=== PATIENT | female | born 1935 | race Caucasian/White ===

== ENCOUNTER 2016-07-30 13:36 | Emergency (ER) | payer MEDICARE ==
[2016-07-30 15:02] VITALS: BP 184/84
--- NOTE | 2016-07-30 15:20 | PHYS DOC ---
Past Medical History Past Medical History: High Cholesterol, Hypothyroid Past Surgical History: Other Additional Past Surgical Histo: D\C Alcohol Use: None Drug Use: None Adult General Chief Complaint Chief Complaint: LOWEREXTREMITY INJURY HPI HPI Patient is a 80 year old female with end high cholesterol who presents today with left lower extremity pain mild in nature that began today after the grandson weighing approximately 40 pounds fell with the chair on her leg. Review of Systems Review of Systems Constitutional: Denies fever or chills [] Eyes: Denies change in visual acuity, redness, or eye pain [] Musculoskeletal: Left lower extremity pain Integument: Denies rash or skin lesions [] Neurologic: Denies headache, focal weakness or sensory changes [] Endocrine: Denies polyuria or polydipsia [] Physical Exam Physical Exam Constitutional: Well developed, well nourished, no acute distress, non-toxic appearance. [] HENT: Normocephalic, atraumatic, bilateral external ears normal, oropharynx moist, no oral exudates, nose normal. [] Skin: Warm, dry, no erythema, no rash. [] Back: No tenderness, no CVA tenderness. [] Extremities: Left lower extremity with no obvious deformity, small contusion noted on the left anterior ankle. Tenderness on palpation of the distal gauthier. Full range of motion to the left lower extremity including the ankle and toes. + 2 left pedal pulse. Cap refill less than 2 seconds and left lower extremity. Sensation intact to the left lower extremity. Neurologic: Alert and oriented X 3, normal motor function, normal sensory function, no focal deficits noted. [] Psychologic: Affect normal, judgement normal, mood normal. [] Current Patient Data Vital Signs Vital Signs Date Time Temp Pulse Resp B/P Pulse Ox O2 Delivery O2 Flow Rate FiO2 07/30/16 15:02 69 20 100 EKG EKG [] Radiology/Procedures Radiology/Procedures [] Course & Med Decision Making Course & Med Decision Making Pertinent Labs and Imaging studies reviewed. (See chart for details) Patient is in the ED with left leg contusion after the grandson fail sitting on a chair landing on patient's leg. Left ankle and tib-fib x-rays interpreted by radiologist are negative for any acute findings. Patient has left lower extremity contusion. Ice and elevation encouraged. Follow-up with her own doctor or orthopedic doctor in one week. [id number] pain relievers recommended. Discharged in stable condition. Dragon Disclaimer Dragon Disclaimer This electronic medical record was generated, in whole or in part, using a voice recognition dictation system. Departure Departure Impression: Primary Impression: Contusion of lower leg, left Disposition: 01 HOME, SELF-CARE Condition: STABLE Referrals: AZAR BELTRAN (PCP) KATHRYN PETERSON MD You can follow-up with your own doctor or the provided in one week if pain continues Patient Instructions: Contusion Additional Instructions: You were seen for contusion of the left lower extremity. Ice and elevate the extremity. Take [id number] pain relievers as needed. Follow-up with your own doctor or the provided doctor in one week. MAURO VITAL APRN Jul 30, 2016 15:20
--- NOTE | 2016-07-30 15:32 | RAD ---
TIBIA FIBULA LEFT History:pain, chair fell on it Comparison: None Findings:2 views left tibia-fibula are submitted. No acute fracture or dislocation is identified. Impression: 1.No acute osseous abnormality is identified.
--- NOTE | 2016-07-30 15:33 | RAD ---
ANKLE LEFT 3V History:pain, chair fell on it Comparison: None Findings:3 views left ankle are submitted. There is tissue swelling. No acute fracture or dislocation is identified. There are small plantar calcaneal enthesophyte. Impression: 1.No acute osseous abnormality is identified. There is soft tissue swelling.
== END 2016-07-30 21:08 | disposition home or self-care (01) ==
LOC: ER 13:36
DX: S80.12XA Contusion of left lower leg, initial encounter (principal); E03.9 Hypothyroidism, unspecified; E78.00 Pure hypercholesterolemia, unspecified; W20.8XXA Other cause of strike by thrown, projected or falling object, initial encounter; Y93.89 Activity, other specified; Y92.89 Other specified places as the place of occurrence of the external cause; Y99.8 Other external cause status
CPT/HCPCS: 73590; 73610; 99284